=== PATIENT | female | born 1970 | race Caucasian/White ===

== ENCOUNTER 2021-01-11 17:47 | Emergency (ER) | payer BC, OTHER ==
[~2021-01-11] VITALS: Ht 154.9 cm; Wt 58.1 kg
[~2021-01-11 17:47] MED LIST: ACTEMRA; IMITREX; NORCO
[2021-01-11 17:53] VITALS: BP_SYST 128
--- NOTE | 2021-01-11 17:59 | NUR ---
Patient to ER bed 03 to gown for evaluation. Side rails up.
--- NOTE | 2021-01-11 18:04 | NUR ---
ER DR. HDZ AT THE BEDSIDE EXAMINING PT
--- NOTE | 2021-01-11 18:07 | NUR ---
PT CAME IN FROM HOME C/O PRESSURE LIKE EDGAR X 1 WEEK ON RIGHT SIDE, TAKING IMITREX AT HOME WITHOUT IMPROVEMENT, SEEING FLOATERS OCCASIONALLY, DENIES N/V OR VISUAL DISTURBANCES. PT IS AMBULATORY, AAOX4, V/S STABLE
[2021-01-11] MEDS ORDERED: METOCLOPRAMIDE HCL 10 MG/2 ML VIAL IVP ONE (18:15)
[2021-01-11] MEDS ORDERED: NACL 0.9% 1,000 ML IV ONE (18:15)
--- NOTE | 2021-01-11 18:20 | NUR ---
# 20 gauge angiocath placed to rac. Use of asceptic technique. Opsite placed over site. Blood return noted. Blood for lab drawn from site. Flushed with 10 cc of normal saline. No evidence of infiltration noted. Patient tolerated well.
--- NOTE | 2021-01-11 19:00 | NUR ---
PT ABLE TO AMBULATE TO BATHROOM ,VOIDED, SPECIMEN COLLECTED
[2021-01-11 19:21] VITALS: BP_SYST 124
== END 2021-01-11 19:21 | disposition home or self-care (01) ==
LOC: SED 17:47
DX: G43.909 Migraine, unspecified, not intractable, without status migrainosus (principal)
CPT/HCPCS: 81002; 81025; 96361; 96374; 99283; J2765; J7030

== ENCOUNTER 2023-03-18 13:05 | Emergency (ER) | payer BC ==
[~2023-03-18] VITALS: Ht 154.9 cm; Wt 55.3 kg
[2023-03-18 13:47] VITALS: BP_SYST 122; PULSE 77; RESP 16; TEMP 99; O2SAT 100
[2023-03-18] MEDS ORDERED: TOCI162S INJ (14:06)
[2023-03-18] MEDS ORDERED: IMI50 PO (14:06)
[2023-03-18 15:41] LABS: BASOPHILS % (AUTO) 0.6 % (0.0-2.0); EOSINOPHILS # (AUTO) 0.1 K/uL (0.0-0.4); EOSINOPHILS % (AUTO) 1.3 % (0.0-4.0); HEMOGLOBIN 14.2 g/dL (12.0-16.0); LYMPHOCYTES % (AUTO) 20.5 % (20.5-51.5); MEAN CORPUSCULAR HEMOGLOBIN 33 pg (27-31); MEAN CORPUSCULAR HGB CONC 33 % (32-36); MEAN CORPUSCULAR VOLUME 99 fL (79.0-98.0); MONOCYTES # (AUTO) 0.6 K/uL (0.0-1.0); MONOCYTES % (AUTO) 11.3 % (1.7-9.3); NEUTROPHILS # (AUTO) 3.4 K/uL (1.8-7.7); NEUTROPHILS % (AUTO) 66.3 % (40.0-70.0); PLATELET COUNT (AUTO) 214 K/uL (130-430); RED BLOOD CELL COUNT(AUTO) 4.33 MIL/uL (4.2-6.2); RED CELL DISTRIBUTION WIDTH 13.2 % (9.0-15.0); WHITE BLOOD COUNT (AUTO) 5.1 K/uL (4.8-10.8)
[2023-03-18 16:00] LABS: ALANINE AMINOTRANSFERASE 22 U/L (12-78); ALBUMIN 3.7 g/dL (3.4-4.8); ANION GAP 7 (5-15); ASPARTATE AMINOTRANSFERASE 17 U/L (10-37); CALCIUM 8.8 mg/dL (8.4-11.0); CARBON DIOXIDE 27 mmol/L (23-29); CHLORIDE 103 mmol/L (98-107); CREATININE 0.62 mg/dL (0.55-1.30); GFR AFRICAN AMERICAN 130 mL/min (>90); GFR NON AFRICAN-AMERICAN 107 mL/min (>90); GLUCOSE 90 mg/dL (74-106); POTASSIUM 4.3 mmol/L (3.5-5.1); SODIUM SERUM 137 mmol/L (136-145); TOTAL BILIRUBIN 0.4 mg/dL (0.0-1.0); TOTAL PROTEIN, SERUM 7.2 g/dL (6.4-8.3); UREA NITROGEN, BLOOD 18 mg/dL (8-21)
[2023-03-18] MEDS ORDERED: KETOROLAC TROMETHAMINE 60 MG/2 ML VIAL IM ONE (16:00)
[2023-03-18 16:34] VITALS: BP_SYST 122; PULSE 77; RESP 16; TEMP 97.6; O2SAT 100
== END 2023-03-18 16:34 | disposition home or self-care (01) ==
LOC: SED 13:05
DX: M54.12 Radiculopathy, cervical region (principal); G43.909 Migraine, unspecified, not intractable, without status migrainosus; R20.2 Paresthesia of skin; Z79.899 Other long term (current) drug therapy
CPT/HCPCS: 99285; 70450; 71045; 80053; 85025; 84484; 36415; 72125; 76376; 81025; 96372; J1885